=== PATIENT | male | born 1955 | race Two or more races ===

== ENCOUNTER 2019-04-18 08:45 | Inpatient (IN) | payer OTHER ==
[~2019-04-18] VITALS: Ht 175.3 cm; Wt 99.8 kg
[2019-04-18] MEDS ORDERED: PEPCID AC20 MG PO (12:30)
[2019-04-18] MEDS ORDERED: TOPROL XL50 M1 PO (12:30)
[2019-04-18] MEDS ORDERED: ASPIR 8181 MG PO (12:31)
[2019-04-25] MEDS ORDERED: CEFADROXIL500 MG PO (08:37)
[2019-04-25] MEDS ORDERED: ELIQUIS2.5 MG PO (08:37)
[2019-04-25] MEDS ORDERED: PERCOCET 5-3251 EACH PO (08:37)
== END 2019-04-25 12:29 | DRG 470 ==
LOC: O/R 08:45 → SURG 04-22 06:11 → O/R 04-22 08:45 → SURG 04-22 13:47 → O/R 04-22 14:30 → SURG 04-25 12:29
PROVIDERS: ADMIT Orthopaedic Surgery
PROC: 0MNP0ZZ Release Left Knee Bursa and Ligament, Open Approach (ICD-10-PCS; 2019-04-22)
PROC: 0SRD0J9 Replacement of Left Knee Joint with Synthetic Substitute, Cemented, Open Approach (ICD-10-PCS; principal; 2019-04-22 14:30)
DX: M17.12 Unilateral primary osteoarthritis, left knee (principal); D62 Acute posthemorrhagic anemia; I10 Essential (primary) hypertension; G47.33 Obstructive sleep apnea (adult) (pediatric)

== ENCOUNTER 2022-10-04 08:15 | Inpatient (IN) | payer OTHER ==
[~2022-10-04] VITALS: Ht 175.3 cm; Wt 93.9 kg
[~2022-10-04 08:15] MED LIST: ASPIR 8181 MG PO; CEFADROXIL500 MG PO; ELIQUIS2.5 MG PO; PEPCID AC20 MG PO; PERCOCET 5-3251 EACH PO; TOPROL XL50 M1 PO
[2022-10-04] MEDS ORDERED: ZETIA10 MG PO (11:08)
[2022-10-04] MEDS ORDERED: DICY20TA PO (11:08)
[2022-10-04] MEDS ORDERED: ZESTRIL10 M1 PO (11:08)
[2022-10-04] MEDS ORDERED: FARXIGA10 MG PO (11:09)
[2022-10-04] MEDS ORDERED: D3 + K2 DOTS 11 EACH PO (11:09)
[2022-10-04] MEDS ORDERED: PROAIR RESPICL90 MCG IH (11:15)
[2022-10-04] MEDS ORDERED: ALBUTEROL1.25 MG/3 IH (11:15)
[2022-10-04] MEDS ORDERED: BUDESONIDE0.25 MG/2 (11:16)
[2022-10-11] MEDS ORDERED: FAMOTIDINE40 MG (09:03)
[2022-10-11] MEDS ORDERED: ATORVASTATIN CA20 MG (09:03)
[2022-10-11] MEDS ORDERED: MECLIZINE HCL25 MG (09:03)
[2022-10-11] MEDS ORDERED: DICYCLOMINE HCL20 MG (09:03)
[2022-10-11] MEDS ORDERED: METFORMIN HCL1000 M3 (09:03)
[2022-10-11] MEDS ORDERED: BICALUTAMIDE50 MG (09:03)
[2022-10-11] MEDS ORDERED: SUCRALFATE1 GM (09:03)
[2022-10-11] MEDS ORDERED: HYDROCHLOROTH12.5 MG (09:03)
[2022-10-11] MEDS ORDERED: PANTOPRAZOLE SO40 MG (09:03)
[2022-10-12] MEDS ORDERED: ELIQUIS2.5 MG PO (15:42)
[2022-10-12] MEDS ORDERED: PERCOCET 5-3251 EACH PO (15:42)
[2022-10-12] MEDS ORDERED: DUI500 PO (15:42)
== END 2022-10-12 21:21 | disposition home or self-care (01) | DRG 470 ==
LOC: SURG 10-10 06:10 → O/R 10-10 06:10 → SURH 10-10 07:00 → SURG 10-10 14:00
PROVIDERS: ADMIT Orthopaedic Surgery; ATTEND Orthopaedic Surgery
PROC: 0SRC0J9 Replacement of Right Knee Joint with Synthetic Substitute, Cemented, Open Approach (ICD-10-PCS; principal; 2022-10-10 07:00)
DX: M17.11 Unilateral primary osteoarthritis, right knee (principal); D62 Acute posthemorrhagic anemia; M22.11 Recurrent subluxation of patella, right knee; M81.0 Age-related osteoporosis without current pathological fracture; I10 Essential (primary) hypertension; G47.33 Obstructive sleep apnea (adult) (pediatric); Z96.651 Presence of right artificial knee joint; Z20.822 Contact with and (suspected) exposure to COVID-19

== ENCOUNTER 2022-10-16 13:39 | Inpatient (IN) | payer OTHER ==
[~2022-10-16] VITALS: Ht 170.2 cm; Wt 90.7 kg
[~2022-10-16 13:39] MED LIST changes: +ALBUTEROL1.25 MG/3 IH; +ATORVASTATIN CA20 MG; +BICALUTAMIDE50 MG; +BUDESONIDE0.25 MG/2; +D3 + K2 DOTS 11 EACH PO; +DICY20TA PO; +DICYCLOMINE HCL20 MG; +DUI500 PO; +FAMOTIDINE40 MG; +FARXIGA10 MG PO; +HYDROCHLOROTH12.5 MG; +MECLIZINE HCL25 MG; +METFORMIN HCL1000 M3; +PANTOPRAZOLE SO40 MG; +PROAIR RESPICL90 MCG IH; +SUCRALFATE1 GM; +ZESTRIL10 M1 PO; +ZETIA10 MG PO
[2022-10-16] MEDS ORDERED: GLUMETZA500 MG (14:02)
[2022-10-16] MEDS ORDERED: TOPROL XL25 M1 (14:02)
[2022-10-18] MEDS ORDERED: PANTOPRAZOLE SO40 MG (09:34)
[2022-10-18] MEDS ORDERED: FAMOTIDINE40 MG (09:34)
[2022-10-18] MEDS ORDERED: BICALUTAMIDE50 MG (09:34)
[2022-10-18] MEDS ORDERED: EZETIMIBE10 MG (09:34)
[2022-10-18] MEDS ORDERED: FARXIGA10 MG (09:35)
[2022-10-18] MEDS ORDERED: HYDROCHLOROTH12.5 MG (09:35)
[2022-10-18] MEDS ORDERED: DICYCLOMINE HCL20 MG (09:35)
[2022-10-18] MEDS ORDERED: ATORVASTATIN CA20 MG (09:35)
[2022-10-18] MEDS ORDERED: SUCRALFATE1 GM (09:35)
[2022-10-18] MEDS ORDERED: METFORMIN HCL1000 M3 (09:35)
[2022-10-18] MEDS ORDERED: MECLIZINE HCL25 MG (09:35)
[2022-10-23] MEDS ORDERED: ELIQUIS5 MG PO (16:26)
[2022-10-23] MEDS ORDERED: GABAPENTIN300 MG PO (16:27)
== END 2022-10-23 19:00 | disposition home or self-care (01) | DRG 560 ==
LOC: ER 13:39 → MEDI 18:04
PROVIDERS: ADMIT Internal Medicine; ATTEND Internal Medicine
PROC: B54BZZZ Ultrasonography of Right Lower Extremity Veins (ICD-10-PCS; 2022-10-16)
PROC: 30233N1 Transfusion of Nonautologous Red Blood Cells into Peripheral Vein, Percutaneous Approach (ICD-10-PCS; principal; 2022-10-19)
DX: T84.9XXA Unspecified complication of internal orthopedic prosthetic device, implant and graft, initial encounter (principal); D62 Acute posthemorrhagic anemia; I82.411 Acute embolism and thrombosis of right femoral vein; I82.431 Acute embolism and thrombosis of right popliteal vein; I82.441 Acute embolism and thrombosis of right tibial vein; E78.5 Hyperlipidemia, unspecified; G47.33 Obstructive sleep apnea (adult) (pediatric); Z20.822 Contact with and (suspected) exposure to COVID-19; I10 Essential (primary) hypertension; E11.40 Type 2 diabetes mellitus with diabetic neuropathy, unspecified; Z79.4 Long term (current) use of insulin; J44.9 Chronic obstructive pulmonary disease, unspecified